=== PATIENT | male | born 1965 | race Asian ===

== ENCOUNTER 2017-01-07 22:24 | Emergency (ER) | payer BC, OTHER ==
[~2017-01-07] VITALS: Ht 180.3 cm; Wt 76.0 kg
[2017-01-07 22:31] VITALS: TEMP 36.2; Ht 180.3 cm; Wt 76.0 kg
--- NOTE | 2017-01-07 22:43 | EMERGENCY ROOM VISIT NOTE ---
History Report prepared by Jeb: Sam Rodriguez Under the Supervision of: Dr. Aki Greenfield D.O. First contact with patient: 22:26 Chief Complaint: FALL Stated Complaint: FALL/ RT KNEE PAIN History of Present Illness The patient is a 51 year old male who presents to the Emergency Room with complaints of sudden right knee pain due to a fall beginning thirty minutes prior to arrival. He currently rates his discomfort as a 5/10 in severity. The patient states he got off a plane and went to grab his luggage, when he slipped on ice. He notes he fell straight on the right knee. The patient states the right knee pain worsens with movement. He denies hitting his head and losing consciousness. The patient notes he does not have any medical problems or surgeries. 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 A total of 10 systems reviewed and were otherwise negative. Past Medical & Surgical Medical Problems: (1) No pertinent past medical history Family History Patient reports no known family medical history. Social History Smoking Status: Never Smoker Marital Status: Occupation Status: employed Current/Historical Medications No Active Prescriptions or Reported Meds Allergies Coded Allergies: No Known Allergies (Unverified , 01/07/17) Physical Exam Vital Signs Date Time Temp Pulse Resp B/P Pulse Ox O2 Delivery O2 Flow Rate FiO2 01/07/17 22:31 36.2 67 18 127/83 98 Room Air Physical Exam GENERAL: Patient is awake, alert, and in no acute distress. Patient is resting comfortably and showing no signs of anxiety EYES: The conjunctivae are clear. The pupils are round and reactive. EARS, NOSE, MOUTH AND THROAT: The nose is without any evidence of any deformity. Mucous membranes are moist tongue is midline NECK: The neck is nontender and supple. RESPIRATORY: Normal respiratory effort is noted there is no evidence of wheezing rhonchi or rales CARDIOVASCULAR: Regular rate and rhythm noted there no murmurs rubs or gallops normal S1 normal S2 GASTROINTESTINAL: The abdomen is soft. Bowel sounds are present in all quadrants. Abdomen is nontender BACK: No midline tenderness or or step-off noted range of motion in flexion extension as well as rotation no signs of muscle spasm noted MUSCULOSKELETAL/EXTREMITIES: Significant pain over the right knee. Swelling over the right patella. Defect over the infrapatellar tendon. Patient is unable to lift the right foot off of the bed and could not extend the right knee. SKIN: There is no obvious evidence of any rash. There are no petechiae, pallor or cyanosis noted. NEUROLOGIC: Patient is awake alert and oriented x3 strength is symmetric patellar reflexes are 2+ bilaterally Medical Decision & Procedures ER Provider Diagnostic Interpretation: X-ray results as stated below per interpretation by me and the radiologist. RIGHT KNEE 2 VIEWS CLINICAL HISTORY: Fall with right knee pain. FINDINGS: AP and crosstable lateral portable views of the right knee are obtained. No prior studies are available for comparison at the time of dictation. The skeletal structures are well mineralized. There is a comminuted horizontally oriented fracture through the lower pole of the patella. The fragments are distracted by approximately 1 cm. There is an associated joint effusion and significant prepatellar soft tissue edema. No additional fracture is identified. A calcified fabella is incidentally noted. IMPRESSION: Comminuted and distracted fracture through the lower pole of the patella with associated joint effusion and soft tissue edema. Electronically signed by: Jimmy Hollingsworth M.D. 01/07/2017 11:10 PM ED Course 2227: The patient was evaluated in room B11B. A complete history and physical examination were performed. 2315: Upon reevaluation, the patient is doing well. I discussed the results and treatment plan with him. He verbalized agreement of the treatment plan. The patient was discharged home. Medical Decision Etiologies such as fracture, dislocation, neurovascular compromise, compartment syndrome, soft tissue injury, as well as others were entertained. Nursing notes reviewed. Additional history is obtained from the prehospital personnel. The patient is a 51-year-old male who presented to the emergency department for an evaluation of right knee injury. The patient [place] the airport right [place] directly. His history and physical exam. Consistent with a patellar fracture as well as infrapatellar tendon rupture. The patient's x-rays did reveal signs of patellar fracture. I discussed the patient's radiographic studies with him. He was placed in a knee immobilizer and given crutches. He did not wish to have any pain medication and he was offered pain medication multiple times. He was given follow-up information for the on-call orthopedic physician. He was also encouraged to continue using the knee immobilizer and crutches especially when doing any ambulation. He was also encouraged to continue using Motrin and Tylenol for pain. He was encouraged to follow-up with the orthopedic physician as soon as possible to discuss further management and possible surgical management. He was also encouraged to return to emergency department immediately if symptoms change worsen or need arises. Impression Primary Impression: Patellar tendon rupture Additional Impression: Patellar fracture Scribe Attestation The scribe's documentation has been prepared under my direction and personally reviewed by me in its entirety. I confirm that the note above accurately reflects all work, treatment, procedures, and medical decision making performed by me. Departure Information Dispostion Home / Self-Care Prescriptions No Active Prescriptions or Reported Meds Referrals No Doctor, Assigned (PCP) Forms HOME CARE DOCUMENTATION FORM, IMPORTANT VISIT INFORMATION, Work Instructions Patient Instructions ED Fx Patella, [facility] Additional Instructions Continue using Motrin and Tylenol as directed for pain. Rest and avoid any strenuous activity. Continue using the knee immobilizer especially when you are up and walking. Continue using the crutches especially when you are up and walking. Call the orthopedic physician in the morning to schedule a follow-up appointment. Problem Qualifiers
--- NOTE | 2017-01-07 23:12 | DIAGNOSTIC IMAGING REPORT ---
RIGHT KNEE 2 VIEWS CLINICAL HISTORY: Fall with right knee pain. FINDINGS: AP and crosstable lateral portable views of the right knee are obtained. No prior studies are available for comparison at the time of dictation. The skeletal structures are well mineralized. There is a comminuted horizontally oriented fracture through the lower pole of the patella. The fragments are distracted by approximately 1 cm. There is an associated joint effusion and significant prepatellar soft tissue edema. No additional fracture is identified. A calcified fabella is incidentally noted. IMPRESSION: Comminuted and distracted fracture through the lower pole of the patella with associated joint effusion and soft tissue edema. Electronically signed by: Jimmy Hollingsworth M.D. 01/07/2017 11:10 PM Dictated Date/Time: 01/07/2017 11:09 PM
[2017-01-07 23:38] VITALS: BP 129/92; PULSE 81; O2SAT 97
[2017-01-13] MEDS ORDERED: ASPI325T45 PO (11:00)
[2017-01-13] MEDS ORDERED: HYDR-5688 PO (11:00)
== END 2017-01-07 23:56 | disposition home or self-care (01) ==
LOC: EDBD 22:24 → C.EDB 22:26
DX: S82.001A Unspecified fracture of right patella, initial encounter for closed fracture (principal); W00.0XXA Fall on same level due to ice and snow, initial encounter

== ENCOUNTER → 2017-01-10 | Outpatient (CLI) | payer OTHER ==
[~2017-01-10] MED LIST: ASPI325T45 PO; HYDR-5688 PO
[2017-01-10 19:19] LABS: HEMATOCRIT 44.1 % (42-52); MEAN CELL VOLUME 88.6 fL (80-100); MEAN CORPUSCULAR HEMOGLOBIN 31.1 pg (25-34); MEAN CORPUSCULAR HGB CONC 35.1 g/dl (32-36); MEAN PLATELET VOLUME 10.6 fL (7.4-10.4); PLATELET COUNT 244 K/uL (130-400); RED BLOOD COUNT 4.98 M/uL (4.7-6.1); WHITE BLOOD COUNT 8.45 K/uL (4.8-10.8)
[2017-01-10 19:29] LABS: BLOOD UREA NITROGEN 10 mg/dl (7-18)
[2017-01-10 19:30] LABS: CARBON DIOXIDE 25 mmol/L (21-32); CHLORIDE 104 mmol/L (98-107); POTASSIUM 4.1 mmol/L (3.5-5.1); SODIUM 141 mmol/L (136-145)
== END | disposition home or self-care (01) ==
LOC: C.CPL 16:08
PROVIDERS: ATTEND Physical Medicine & Rehabilitation Sports Medicine
DX: Z01.818 Encounter for other preprocedural examination (principal); S82.031A Displaced transverse fracture of right patella, initial encounter for closed fracture; X58.XXXA Exposure to other specified factors, initial encounter

== ENCOUNTER → 2017-01-13 | Day surgery (SDC) | payer OTHER ==
[2017-01-11 11:59] VITALS: Ht 180.3 cm; Wt 70.5 kg
[~2017-01-13] VITALS: Ht 180.3 cm; Wt 70.5 kg
[~2017-01-13] MED LIST changes: +ATROPINE SULFATE 0.1 MG/ML 5ML SYR IV PRN; +BUPIVACAINE/EPINEPHRINE 0.25% 1:200,000 30 ML VIAL ONE; +CEFAZOLIN 1000MG/55 ML D5W IV SCH; +CEFAZOLIN SOD 1 GM VIAL IV ONE; +CEFAZOLIN SOD 1 GM VIAL ONE; +DEXAMETHASONE SOD INJ 4 MG/ML VIAL ONE; +EpHEDrine SULFATE INJ 50 MG/ML AMP IV PRN; +FENTANYL CITRATE INJ 50 MCG/1 ML 2 ML VIAL ONE; +FLUMAZENIL 0.1 MG/1 ML 10 ML VIAL IV PRN; +HYDROCODONE/ACETAMOPHEN 5/325MG TAB PO PRN; +HYDROmorphone INJ 0.5 MG/0.5 ML SYR ONE; +HYDROmorphone INJ 1 MG/ML SYR IV PRN; +LABETALOL HCL IV 5 MG/ML 20ML IV PRN; +LACTATED RINGER'S 1000ML 1,000 ML IV SCH; +LIDOCAINE HCL 2% 2 ML VIAL (20MG/ML) ONE; +MIDAZOLAM HCL 1 MG/ML 2ML VIAL ONE; +MoRPHine SULFATE 2 MG/ML CARP IV PRN; +MoRPHine SULFATE 4 MG/ML 1 ML CARP\\VIAL IV PRN; +NALOXONE HCL 0.4 MG/1 ML VIAL/CARP IV PRN; +ONDANSETRON INJ 2 MG/ML 2 ML VIAL IV PRN; +ONDANSETRON INJ 2 MG/ML 2 ML VIAL ONE; +PROMETHAZINE HCL INJ 12.5 MG in SODIUM CHLORIDE 0.9% 50ML 50 ML IV PRN; +PROPOFOL IV EMULSION 10 MG/ML 20 ML VIAL IV ONE; +SODIUM CHLORIDE 0.9% 1000ML 1,000 ML IV SCH; +SODIUM CHLORIDE 0.9% INJ 10 ML VIAL ONE
--- NOTE | 2017-01-13 11:23 | History & Physical Bridge Note ---
H&P Re-Evaluation Bridge Note: I have examined the patient, reviewed the History & Physical and in the interval since the performance of the History & Physical I have noted the following changes of clinical significance: No changes noted
--- NOTE | 2017-01-13 13:21 | [facility] Operative Report ---
Operative Report Operative Date Jan 13, 2017. Pre-Operative Diagnosis Right Patellar Fracture Post-Operative Diagnosis Same Procedure(s) Performed Right Excision Distal Pole Patella, Patella Tendon Repair Surgeon Dr. Cabral Washer And Crusher Tender Surgeon(s) Baron De Dios PA-C Estimated Blood Loss 50 ml Findings small comminuted fx of distal pole of Right patella. Specimens None Complication(s) None Disposition Recovery Room / PACU I attest to the content of the Intraoperative Record and any orders documented therein. Any exceptions are noted below.
--- NOTE | 2017-01-13 13:24 | Discharge Instructions ---
Discharge Instructions Admission Reason for Admission: Right Patellar Fracture Discharge Discharge Diagnosis / Problem: same Discharge Goals Goal(s): Decrease discomfort, Improve function, Increase independence Activity Recommendations Activity Limitations: as noted below Lifting Limitations: none Exercise/Sports Limitations: none May Resume Sexual Activity: when tolerated Shower/Bathe: tomorrow, keep incision dry Driving or Machine Use: No driving until cleared by Orthopaedic specialist Weightbearing Status: Right weightbearing (as tolerated with the use of immobilizer and crutches) . Instructions / Follow-Up Instructions / Follow-Up DIET: * Resume previous diet. MEDICATIONS: * Please take your prescriptions as instructed at your pre-op appointment and/ or see medication discharge instructions listed above. * If concerns develop, call your physician's office at . SPECIAL CARE INSTRUCTIONS: * Ice/Elevate as instructed. * Keep dressing clean, dry, intact. * Your surgical extremity may be discolored due to prepping agents used on the skin. A bluish-green tint is a normal variant and should not cause alarm. Call your doctor at [phone] if: * Temperature above 101 degrees * Pain not relieved by pain medicine ordered * There is increased drainage or redness from any incision * You have any unanswered questions, problems or concerns. FOLLOW UP VISIT: * If not already scheduled, please call the office at to schedule a follow-up appointment. Current Hospital Diet Patient's current hospital diet: Discharge Diet Recommended Diet: Regular Diet Procedures Procedures Performed: Right Excision Distal Pole Patella, Patella Tendon Repair Pending Studies Studies pending at discharge: no Medical Emergencies . Who to Call and When: Medical Emergencies: If at any time you feel your situation is an emergency, please call 911 immediately. . Non-Emergent Contact Non-Emergency issues call your: Primary Care Provider Call Non-Emergent contact if: temperature is above 101.5, your pain is not controlled, wound has increased drainage, you have any medication questions . "Provider Documentation" section prepared by Dat De Dios. VTE Core Measure Inpt VTE Proph given/why not?: Other Anticoagulation (Aspirin), T.E.DAna Garrett PA Drug Monitoring Program Search Results: no issues identified
--- NOTE | 2017-01-13 13:24 | [facility] Post Operative Brief Note ---
Immediate Operative Summary Operative Date Jan 13, 2017. Pre-Operative Diagnosis Right Patellar Fracture Post-Operative Diagnosis Same Procedure(s) Performed Right Excision Distal Pole Patella, Patella Tendon Repair Surgeon Dr. Cabral Medical Planner Surgeon(s) Baron De Dios PA-C, elaina son, ms3 Estimated Blood Loss 50 ml Findings comminuted inferior pole of patella fracture Specimens None Anesthesia LMA, block Complication(s) None Disposition Recovery Room / PACU
--- NOTE | 2017-01-13 13:28 | Medical Student: [facility] ---
Immediate Operative Summary Operative Date Jan 13, 2017. Pre-Operative Diagnosis Right Patella Fracture Post-Operative Diagnosis Right Patella Fracture Procedure(s) Performed Removal of inferior pole of right patella with reattachment of petella tendon Surgeon Dr. Cabral Crystalizer Operator Surgeon(s) HIMANSHU De Dios PA-C Estimated Blood Loss 50cc Findings Right Patella fracture with intact superior portion and comminuted fracture of inferior portion. Cartilage not seen on interior portion. Specimens None Complication(s) None Disposition Recovery Room / PACU
[2017-01-13 15:00] VITALS: BP 131/82; PULSE 73; TEMP 37.3; O2SAT 97
--- NOTE | 2017-01-13 15:04 | Anesthesia Progress Nt - [facility] ---
Anesthesia Post Op Note Date & Time Jan 13, 2017 at 15:04 Vital Signs Pain Intensity: 2 Vital Signs Past 12 Hours Date Time Temp Pulse Resp B/P Pulse Ox O2 Delivery O2 Flow Rate FiO2 01/13/17 15:00 37.3 73 16 131/82 97 Room Air 01/13/17 14:19 74 16 136/84 98 Room Air 01/13/17 14:09 72 16 98 01/13/17 14:09 72 16 01/13/17 14:08 37.0 67 16 135/90 97 Room Air 01/13/17 14:08 138/91 01/13/17 14:04 71 21 01/13/17 14:04 70 21 98 01/13/17 14:03 135/90 01/13/17 13:59 68 14 98 01/13/17 13:59 68 14 01/13/17 13:58 140/86 01/13/17 13:55 71 13 01/13/17 13:55 71 13 100 01/13/17 13:53 132/87 01/13/17 13:50 69 16 01/13/17 13:50 68 16 100 01/13/17 13:48 130/85 01/13/17 13:45 60 13 100 01/13/17 13:45 60 13 01/13/17 13:43 123/79 01/13/17 13:40 63 14 01/13/17 13:40 65 14 100 01/13/17 13:38 119/77 01/13/17 13:35 59 16 100 01/13/17 13:35 59 16 01/13/17 13:33 124/81 01/13/17 13:30 59 10 100 01/13/17 13:30 60 10 01/13/17 13:28 124/82 01/13/17 13:25 60 17 01/13/17 13:25 37.6 60 12 126/78 100 Diffusion Mask 6 01/13/17 13:25 60 17 100 01/13/17 11:43 110/73 01/13/17 11:39 68 17 97 01/13/17 11:39 69 18 97 01/13/17 11:38 112/66 01/13/17 11:33 116/72 01/13/17 11:28 62 19 111/70 97 2/16/17 11:28 62 18 98 01/13/17 11:23 132/77 01/13/17 11:20 127/82 01/13/17 11:20 62 18 132/77 97 Nasal Cannula 3 01/13/17 10:18 36.9 90 16 119/77 94 Room Air Notes Mental Status: alert / awake / arousable, participated in evaluation Pt Amnestic to Procedure: Yes Nausea / Vomiting: adequately controlled Pain: adequately controlled Airway Patency, RR, SpO2: stable & adequate BP & HR: stable & adequate Hydration State: stable & adequate Anesthetic Complications: no major complications apparent
--- NOTE | 2017-01-13 23:23 | OPERATIVE REPORT ---
DATE OF OPERATION: 01/13/2017 PREOPERATIVE DIAGNOSIS: Right patellar fracture. POSTOPERATIVE DIAGNOSIS: Same. PROCEDURE: Excision of distal patellar fracture fragment and primary repair of the patellar tendon to the proximal patellar fracture fragment. SURGEON: Dr. Cabral. RIP MACHINE OPERATOR: Braon De Dios PA-C. SECOND RIP MACHINE OPERATOR: Wojciech Huddleston, medical student. There was no resident or fellow available. ANESTHESIA: Laryngeal mask. 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 I recommended surgery, he agrees to proceed. We have made plans for ORIF. PROCEDURE IN DETAIL: Informed consent was obtained. The patient was identified as Vern Neumann, he identified the operative site as right knee, I marked it with my initials. A preop surgical timeout was performed. A preop dose of IV antibiotics was given. He was taken to the operating room, positioned supine on the operating room table. The leg was prescrubbed and prepped and draped in usual sterile fashion. A thigh tourniquet was applied previously. DVT prophylaxis intraoperatively with foot pumps, postoperatively with early mobility. He also had an adductor canal block for anesthesia along with his laryngeal mask. The exam under anesthesia showed intact cruciates and collaterals. [place] assisted range of motion was 120. The patellar fracture was palpable with swelling and ecchymosis about the knee, but no break in the skin or blistering. The leg was exsanguinated with Esmarch, tourniquet inflated to 225 mmHg. A midline incision was made about 12-15 cm in length and full-thickness flaps were elevated down to the level of the patellar tendon. The paratenon was elevated. The fracture site was identified. The retinaculum was intact and was divided in order to improve visualization. The distal fragment was then noted to be comminuted and small. It did not have any articular cartilage on it except for about a 0.5 x 0.5 square area laterally. The remainder of the patella looked good and the patellar cartilage was intact. Some of the fat pad was excised to aid in visualization. Internal fixation at this point was not feasible and I elected to proceed with excision of the fragment and repair of the patellar tendon. The fragment was excised. The patellar tendon was exposed. Two #2 FiberWires were placed in a running Krackow stitch. Three tunnels with a 2.0 drill bit were created in the medial and lateral patella and the stitches were passed proximally using a Reduxio suture passer. One limb from each of the sutures was passed through the middle and the other limb through the other holes. The knee was then held in extension and distal traction was applied to the patella over the bone clamp and the sutures then sequentially tied, alternating the posts and throws. The knee could then be bent to 90 without any difficulty and the fragment that was excised was only about a centimeter or so in thickness and was shell-like and comminuted. This gave excellent fixation. I then reinforced it with 0 and #1 Vicryls for the periosteum and patellar tendon and the medial and lateral retinaculum. Tourniquet was let down prior to wound closure and meticulous hemostasis was performed. A layered closure with 0 and 2-0 Vicryl and chris on the skin was performed. The leg was cleaned with wet and dry sponges, and a soft sterile dressing was applied along with full length [place] wrap and a knee immobilizer. The patient was awakened from anesthesia without difficulty and taken to recovery in stable condition. There were no specimens or complications. Counts were correct at the end of case. Blood loss was approximately 25 mL. At the conclusion of the operation, I spoke to the patient's and informed her of my findings. Postoperative instructions were given. I discussed with her decision making regarding the performed procedure. The patient did have a hemarthrosis which was evacuated. He will be able to weightbear as tolerated with the knee immobilizer and crutches and will do rehabilitation according to the patellar tendon rupture rehab protocol. Aspirin will be used for DVT prophylaxis. I attest to the content of the Intraoperative Record and any orders documented therein. Any exceptio ns are noted below.
== END | disposition home or self-care (01) ==
LOC: X.SURG 10:11
PROVIDERS: ATTEND Physical Medicine & Rehabilitation Sports Medicine
DX: S82.001A Unspecified fracture of right patella, initial encounter for closed fracture (principal); W18.39XA Other fall on same level, initial encounter; Y92.520 Airport as the place of occurrence of the external cause; Y93.01 Activity, walking, marching and hiking; Y99.8 Other external cause status

== ENCOUNTER → 2017-01-26 | Outpatient (CLI) | payer OTHER ==
[~2017-01-26] MED LIST changes: -ATROPINE SULFATE 0.1 MG/ML 5ML SYR IV PRN; -BUPIVACAINE/EPINEPHRINE 0.25% 1:200,000 30 ML VIAL ONE; -CEFAZOLIN 1000MG/55 ML D5W IV SCH; -CEFAZOLIN SOD 1 GM VIAL IV ONE; -CEFAZOLIN SOD 1 GM VIAL ONE; -DEXAMETHASONE SOD INJ 4 MG/ML VIAL ONE; -EpHEDrine SULFATE INJ 50 MG/ML AMP IV PRN; -FENTANYL CITRATE INJ 50 MCG/1 ML 2 ML VIAL ONE; -FLUMAZENIL 0.1 MG/1 ML 10 ML VIAL IV PRN; -HYDROCODONE/ACETAMOPHEN 5/325MG TAB PO PRN; -HYDROmorphone INJ 0.5 MG/0.5 ML SYR ONE; -HYDROmorphone INJ 1 MG/ML SYR IV PRN; -LABETALOL HCL IV 5 MG/ML 20ML IV PRN; -LACTATED RINGER'S 1000ML 1,000 ML IV SCH; -LIDOCAINE HCL 2% 2 ML VIAL (20MG/ML) ONE; -MIDAZOLAM HCL 1 MG/ML 2ML VIAL ONE; -MoRPHine SULFATE 2 MG/ML CARP IV PRN; -MoRPHine SULFATE 4 MG/ML 1 ML CARP\\VIAL IV PRN; -NALOXONE HCL 0.4 MG/1 ML VIAL/CARP IV PRN; -ONDANSETRON INJ 2 MG/ML 2 ML VIAL IV PRN; -ONDANSETRON INJ 2 MG/ML 2 ML VIAL ONE; -PROMETHAZINE HCL INJ 12.5 MG in SODIUM CHLORIDE 0.9% 50ML 50 ML IV PRN; -PROPOFOL IV EMULSION 10 MG/ML 20 ML VIAL IV ONE; -SODIUM CHLORIDE 0.9% 1000ML 1,000 ML IV SCH; -SODIUM CHLORIDE 0.9% INJ 10 ML VIAL ONE
== END | disposition home or self-care (01) ==
LOC: C.RDSM 14:53
PROVIDERS: ATTEND Physical Medicine & Rehabilitation Sports Medicine
DX: S82.031A Displaced transverse fracture of right patella, initial encounter for closed fracture (principal); X58.XXXA Exposure to other specified factors, initial encounter

== ENCOUNTER → 2017-09-12 | Outpatient (CLI) | payer OTHER | END | disposition home or self-care (01) | LOC: C.RDSM 14:26 | PROVIDERS: ATTEND Physical Medicine & Rehabilitation Sports Medicine | DX: S82.031D Displaced transverse fracture of right patella, subsequent encounter for closed fracture with routine healing (principal); X58.XXXD Exposure to other specified factors, subsequent encounter ==